=== PATIENT | female | born 1950 | race Caucasian/White ===

== ENCOUNTER 2016-09-12 11:57 | Outpatient (CLI) ==
[2016-09-12 13:28] LABS: BASOPHILS % (AUTO) 0.4 % (0.0-3.0); EOSINOPHILS # (AUTO) 0.1 K/ul (0.0-0.7); EOSINOPHILS % (AUTO) 1.8 % (0.0-7.0); HEMATOCRIT 43.1 % (37.0-47.0); HEMOGLOBIN 13.6 g/dl (12.0-16.0); IMMATURE GRANULOCYTE % (AUTO) 0.3 % (0.0-5.0); LYMPHOCYTES # (AUTO) 2.3 K/uL (0.60-3.4); LYMPHOCYTES % (AUTO) 29.1 (10.0-50.0); MEAN CORPUSCULAR HEMOGLOBIN 29.1 pg (27.0-31.0); MEAN CORPUSCULAR HGB CONC 31.6 (31.8-35.4); MEAN CORPUSCULAR VOLUME 92.1 fl (81.0-99.0); MONOCYTES # (AUTO) 0.5 K/uL (0.4-2.0); MONOCYTES % (AUTO) 5.9 (0-10); NEUTROPHILS % (AUTO) 62.5; PLATELET COUNT 266 10^3/uL (140-440); RED BLOOD COUNT 4.68 10^6/ul (4.20-5.40); WHITE BLOOD COUNT 7.94 K/ul (4.6-10.2)
[2016-09-12 13:37] LABS: ALBUMIN 4.3 g/dL (3.4-5.0); ALBUMIN/GLOBULIN RATIO 1.43; ANION GAP 12.8; BILIRUBIN,TOTAL 0.46 mg/dL (0.00-1.20); CALCIUM 9.6 mg/dL (8.2-10.2); CHOL/HDL RATIO 3.1 (4.5-5.5); CREATININE 0.88 mg/dL (0.60-1.30); POTASSIUM 3.8 mmol/L (3.5-5.10); TOTAL PROTEIN 7.3 g/dL (5.8-8.1)
[2016-09-12 14:01] LABS: BUN/CREATININE RATIO 11.36
== END 2016-09-12 11:58 | disposition home or self-care (01) ==
LOC: LAB 11:57
PROVIDERS: ATTEND Emergency Medicine
DX: J44.9 Chronic obstructive pulmonary disease, unspecified (principal); E78.5 Hyperlipidemia, unspecified
CPT/HCPCS: 36415; 80053; 80061; 85025

== ENCOUNTER 2016-09-22 07:24 | Emergency (ER) | payer OTHER ==
[2016-09-22 07:33] VITALS: BP 113/70; TEMP 99.2; BMI 19.9
[2016-09-22] MEDS ORDERED: DUONEB NEB STA (07:49)
[2016-09-22 08:03] LABS: BASOPHILS % (AUTO) 0.4 % (0.0-3.0); EOSINOPHILS % (AUTO) 0.1 % (0.0-7.0); HEMATOCRIT 42.1 % (37.0-47.0); HEMOGLOBIN 13.4 g/dl (12.0-16.0); IMMATURE GRANULOCYTE % (AUTO) 0.3 % (0.0-5.0); LYMPHOCYTES # (AUTO) 0.7 K/uL (0.60-3.4); LYMPHOCYTES % (AUTO) 10.1 (10.0-50.0); MEAN CORPUSCULAR HEMOGLOBIN 28.5 pg (27.0-31.0); MEAN CORPUSCULAR HGB CONC 31.8 (31.8-35.4); MEAN CORPUSCULAR VOLUME 89.4 fl (81.0-99.0); MONOCYTES # (AUTO) 0.6 K/uL (0.4-2.0); MONOCYTES % (AUTO) 8.3 (0-10); NEUTROPHILS # (AUTO) 5.4 K/ul (2.0-6.9); NEUTROPHILS % (AUTO) 80.8; PLATELET COUNT 177 10^3/uL (140-440); RED BLOOD COUNT 4.71 10^6/ul (4.20-5.40); WHITE BLOOD COUNT 6.72 K/ul (4.6-10.2)
[2016-09-22 08:19] LABS: ABG BASE EXCESS -1 (-2.0-2.0); ABG HCO3 23.7 (22.0-26.0); ABG PCO2 38.5 mmHg (35-45); ABG PH 7.39 (7.35-7.45); ABG TCO2 25 (22.0-28.0)
--- NOTE | 2016-09-22 08:22 | DI ---
EXAM: Chest one view. CLINICAL INDICATION: Cough. COMPARISON: None available. FINDINGS: A single AP radiograph of the thorax is provided. There is no interval change. The lung volumes are hyperinflated and diaphragms flattened suggesting pulmonary emphysema. The remainder of the pulmonary parenchyma is clear and there is no pleural ab normality. The cardiomediastinal silhouette and visualized bony structures are unremarkable. IMPRESSION: 1. No interval change, with no acute pulmonary abnormality. 2. Findings suggest underlying pulmonary emphysema.
[2016-09-22 08:38] LABS: ALBUMIN 3.8 g/dL (3.4-5.0); ALBUMIN/GLOBULIN RATIO 1.41; ANION GAP 15.9; BILIRUBIN,TOTAL 0.94 mg/dL (0.00-1.20); BUN/CREATININE RATIO 19.76; CALCIUM 8.8 mg/dL (8.2-10.2); CREATININE 0.86 mg/dL (0.60-1.30); POTASSIUM 4.9 mmol/L (3.5-5.10); TOTAL PROTEIN 6.5 g/dL (5.8-8.1); TROPONIN I 0.016 ng/ml (0.0000-0.4000)
[2016-09-22 08:44] LABS: CREATINE KINASE MB 3.9 ng/ml (0.0-3.6)
--- NOTE | 2016-09-22 09:03 | ED.PDOC ---
General ED Provider: Dr. MARIAMA RODRIGUEZ Chief Complaint: Shortness of Air Stated Complaint: shortness of breath Time Seen by Physician: 07:24 (nurse present) Mode of Arrival: Wheelchair Information Source: Patient Exam Limitations: No limitations [facility] Nursing and Triage Documentation Reviewed and Agree: Yes Review of Systems - Review Of Systems Constitutional: Reports: No symptoms Eyes: Reports: No symptoms Ears, Nose, Mouth, Throat: Reports: No symptoms Respiratory: Reports: Cough, Short of air Cardiac: Reports: No symptoms GI: Reports: No symptoms : Reports: No symptoms Musculoskeletal: Reports: No symptoms Skin: Reports: No symptoms Neurological: Reports: No symptoms Endocrine: Reports: No symptoms Hematologic/Lymphatic: Reports: No symptoms All Other Systems: Reviewed and Negative Past Medical History - Past Medical History Previously Healthy: No Endocrine: Reports: None Cardiovascular: Reports: None Respiratory: Reports: COPD Hematological: Reports: None Gastrointestinal: Reports: None Genitourinary: Reports: None Neuro/Psych: Reports: None Musculoskeletal: Reports: None Cancer: Reports: None Last Menstrual Period: hysterectomy - Surgical History General Surgical History: Reports: None - Family History Family History: Reports: None - Social History Smoking Status: Former smoker Hx Substance Use: No Alcohol Screening: None Physical Exam - Physical Exam Appearance: Well-appearing, No pain distress, Well-nourished Eyes: JANETTE, EOMI, Conjunctiva clear ENT: Ears normal, Nose normal, Oropharynx normal Respiratory: Rhonchi, Wheezes Cardiovascular: RRR, Pulses normal, No rub, No murmur GI/: Soft, Nontender, No masses, Bowel sounds normal, No Organomegaly Musculoskeletal: Normal strength, ROM intact, No edema, No calf tenderness Skin: Warm, Dry, Normal color Neurological: Sensation intact, Motor intact, Reflexes intact, Cranial nerves intact, Alert, Oriented Psychiatric: Affect appropriate, Mood appropriate Interpretation - Radiology Interpretation Radiology Interpretation By: Radiologist Radiology Results: No acute changes Critical Care Note - Critical Care Note Total Time (mins): 0 Course - Course Hematology/Chemistry: 09/22/16 07:55 09/22/16 07:55 Orders, Labs, Meds: Lab Review 09/22/16 09/22/16 07:50 07:55 WBC 6.72 RBC 4.71 Hgb 13.4 Hct 42.1 MCV 89.4 MCH 28.5 MCHC 31.8 RDW Coeff of Mercedes 14.0 Plt Count 177 Immature Gran % (Auto) 0.3 Neut % (Auto) 80.8 Lymph % (Auto) 10.1 [place] % (Auto) 8.3 Eos % (Auto) 0.1 Baso % (Auto) 0.4 Immature Gran # (Auto) 0.0 Neut # 5.4 Lymph # 0.7 [place] # 0.6 Eos # 0.0 Baso # 0.0 D-Dimer 0.20 Puncture Site Rb O2 Saturation 97.0 ABG pH 7.39 ABG pCO2 38.5 ABG pO2 87.0 ABG HCO3 23.7 ABG Total CO2 25 ABG Base Excess -1 O2 Delivery Device Nc Oxygen Liter Flow 2.00 FiO2 % 28.0 Sodium 135 L Potassium 4.9 Chloride 98 Carbon Dioxide 26 Anion Gap 15.9 BUN 17 Creatinine 0.86 Estimated GFR (MDRD) 66.00 BUN/Creatinine Ratio 19.76 Glucose 108 Calcium 8.8 Total Bilirubin 0.94 AST 27 ALT 21 Alkaline Phosphatase 54 Total Creatine Kinase 339 CK-MB (CK-2) 3.9 H CK-MB (CK-2) % 1.53455 Troponin I 0.0160 B-Natriuretic Peptide 21 Total Protein 6.5 Albumin 3.8 Globulin 2.7 Albumin/Globulin Ratio 1.41 Orders Category Date Time Status ABG DRAW REQUEST Stat CARDIO 09/22/16 07:50 Completed EKG-(ED ONLY) Stat CARDIO 09/22/16 07:48 Completed NEBULIZER TREATMENT Stat CARDIO 09/22/16 07:50 Completed ED IV/MEDIPORT/POWERPORT .ONCE EMERGENCY 09/22/16 07:49 Active ABG Stat LAB 09/22/16 07:50 Completed B-TYPE NATRIURETIC PEPTIDE Stat LAB 09/22/16 07:55 Completed CBC W/ AUTO DIFF Stat LAB 09/22/16 07:55 Completed COMPREHENSIVE METABOLIC PANEL Stat LAB 09/22/16 07:55 Completed CREATINE KINASE Stat LAB 09/22/16 07:55 Completed D-DIMER Stat LAB 09/22/16 07:55 Completed MOLECULAR GROUP A STREP Stat LAB 09/22/16 07:55 Results STREP SCREEN Stat LAB 09/22/16 07:55 Results TROPONIN I Stat LAB 09/22/16 07:55 Completed 0.9 % Sodium Chloride [Saline Flush] MEDS 09/22/16 07:49 Active 1 syr IVF PRN PRN Ipratropium/Albuterol Neb [Duoneb] MEDS 09/22/16 07:49 Discontinued 1 vial NEB ONCE STA CHEST, 1V AP ONLY Stat RADS 09/22/16 07:48 Completed Medications Generic Name Dose Route Start Last Admin Trade Name Freq PRN Reason Stop Dose Admin Sodium Chloride 1 syr 09/22/16 07:49 Saline Flush IVF PRN PRN To flush IV Discontinued Medications Generic Name Dose Route Start Last Admin Trade Name Freq PRN Reason Stop Dose Admin Albuterol/Ipratropium 1 vial 09/22/16 07:49 09/22/16 08:26 Duoneb NEB 09/22/16 07:50 1 vial ONCE STA Administration Vital Signs: Temp Pulse Resp BP Pulse Ox 09/22/16 07:24 99.2 F 127 H 24 113/70 94 L Departure - Departure Time of Disposition: 09:06 Disposition: HOME SELF-CARE Discharge Problem: COPD (chronic obstructive pulmonary disease) Qualifiers: Chronic bronchitis type: unspecified Instructions: COPD (Chronic Obstructive Pulmonary Disease) (ED) Condition: Good Pt referred to PMD for follow-up: No Additional Instructions: Please call your Family Physician as soon as possible to schedule a follow-up appointment. Allergies/Adverse Reactions: Allergies No Known Allergies Allergy (Unverified 09/22/16 07:33) Home Medications: Ambulatory Orders Tiotropium [place] [Spiriva] 18 mcg IH d 11/14/15 Albuterol Sulfate 2.5 mg IH 3-4XD PRN 03/06/16 Albuterol Sulfate [Ventolin Hfa] 8 gm IH 3-4XD PRN 03/20/16 Budesonide/Formoterol Fumarate [Symbicort 160-4.5 Mcg Inhaler] 10.2 gm IH DAILY 09/19/16
== END 2016-09-22 09:32 | disposition home or self-care (01) ==
LOC: ED 07:24
DX: J42 Unspecified chronic bronchitis (principal); Z79.899 Other long term (current) drug therapy
CPT/HCPCS: 36415; 80053; 82550; 82553; 82803; 83880; 84484; 85025; 85379; 87651; 87880; 93005; 93010; 94640; 99283

== ENCOUNTER 2016-09-24 15:42 | Emergency (ER) | payer OTHER ==
[2016-09-24 15:42] VITALS: BMI 19.9
[2016-09-24] MEDS ORDERED: DUONEB NEB ONE (15:45)
[2016-09-24 15:46] VITALS: BP 145/93; TEMP 98.3
[2016-09-24] MEDS ORDERED: DUONEB NEB STA (15:57)
--- NOTE | 2016-09-24 15:59 | ED.PDOC ---
General ED Provider: Dr. GEORGI ELIZABETH JR Chief Complaint: Shortness of Air Stated Complaint: pt came in short of breath on thursday 09/21, went home on steroids. today started having increase in shortness of air[End]98.3 105 24 88 145/93 moderate productive cough Time Seen by Physician: 15:57 Mode of Arrival: Wheelchair Information Source: Patient Exam Limitations: No limitations Nursing and Triage Documentation Reviewed and Agree: No Review of Systems - Review Of Systems Constitutional: Reports: Malaise, Weakness Eyes: Reports: No symptoms Ears, Nose, Mouth, Throat: Reports: No symptoms Respiratory: Reports: Short of air (sudden this afternoon) Cardiac: Reports: No symptoms GI: Reports: No symptoms : Reports: No symptoms Musculoskeletal: Reports: No symptoms Skin: Reports: No symptoms Neurological: Reports: No symptoms Endocrine: Reports: No symptoms Hematologic/Lymphatic: Reports: No symptoms All Other Systems: Other Past Medical History - Past Medical History Previously Healthy: No Endocrine: Reports: None Cardiovascular: Reports: None Respiratory: Reports: COPD Hematological: Reports: None Gastrointestinal: Reports: None Genitourinary: Reports: None Neuro/Psych: Reports: None Musculoskeletal: Reports: None Cancer: Reports: None Last Menstrual Period: none - Surgical History General Surgical History: Reports: None - Family History Family History: Reports: None - Social History Smoking Status: Former smoker Hx Substance Use: No Alcohol Screening: None Physical Exam - Physical Exam Appearance: Ill-appearing, Thin Ill-appearing: Moderate Eyes: JANETTE, EOMI, Conjunctiva clear ENT: Ears normal, Nose normal, Oropharynx normal Neck: Supple Respiratory: Airway patent, Breath sounds diminished, Rhonchi, Wheezes Cardiovascular: RRR, Pulses normal, No rub, No murmur GI/: Soft, Nontender, No masses, Bowel sounds normal, No Organomegaly Musculoskeletal: Normal strength, ROM intact, No edema, No calf tenderness Skin: Warm, Dry, Normal color Neurological: Sensation intact, Motor intact, Reflexes intact, Cranial nerves intact, Alert, Oriented Psychiatric: Affect appropriate, Mood appropriate Interpretation - Radiology Interpretation Radiology Interpretation By: Radiologist Radiology Results: No acute changes (chf no definite pneumonia- scarring present ) Exam Interpreted: CXR - EKG Interpretation Time of EKG #1: 16:20 Rate: Normal Rhythm: Sinus ST Segment: Other (no sig change 09/22/16) Critical Care Note - Critical Care Note Total Time (mins): 5 Course - Course Hematology/Chemistry: 09/24/16 16:10 09/24/16 16:10 Orders, Labs, Meds: Lab Review 09/24/16 09/24/16 15:58 16:10 WBC 7.04 RBC 4.61 Hgb 13.4 Hct 38.8 MCV 84.2 D MCH 29.1 MCHC 34.5 RDW Coeff of [place] 13.3 Plt Count 185 Immature Gran % (Auto) 0.3 Neut % (Auto) 79.1 Lymph % (Auto) 14.1 [place] % (Auto) 6.4 Eos % (Auto) 0.0 Baso % (Auto) 0.1 Immature Gran # (Auto) 0.0 Neut # 5.6 Lymph # 1.0 [place] # 0.5 Eos # 0.0 Baso # 0.0 D-Dimer 0.22 Puncture Site Rrad O2 Saturation 92.0 L ABG pH 7.435 ABG pCO2 41.3 ABG pO2 63.0 L ABG HCO3 27.7 H ABG Total CO2 29 H ABG Base Excess 3 H Attila Test + FiO2 % 21.0 Sodium 123 L Potassium 4.3 Chloride 85 L Carbon Dioxide 27 Anion Gap 15.3 BUN 20 H Creatinine 0.73 Estimated GFR (MDRD) 79.00 BUN/Creatinine Ratio 27.39 Glucose 111 Calcium 8.8 Total Bilirubin 1.06 AST 47 H ALT 37 Alkaline Phosphatase 52 L Troponin I 0.0100 B-Natriuretic Peptide 27 Total Protein 7.2 Albumin 4.2 Globulin 3.0 Albumin/Globulin Ratio 1.40 Orders Category Date Time Status ABG DRAW REQUEST Stat CARDIO 09/24/16 15:58 Completed EKG-(ED ONLY) Stat CARDIO 09/24/16 15:57 Completed NEBULIZER TREATMENT Stat CARDIO 09/24/16 15:58 Completed ABG Stat LAB 09/24/16 15:58 Completed B-TYPE NATRIURETIC PEPTIDE Stat LAB 09/24/16 16:10 Completed BLOOD CULTURE Stat LAB 09/24/16 16:10 Received CBC W/ AUTO DIFF Stat LAB 09/24/16 16:10 Completed COMPREHENSIVE METABOLIC PANEL Stat LAB 09/24/16 16:10 Completed D-DIMER Stat LAB 09/24/16 16:10 Completed TROPONIN I Stat LAB 09/24/16 16:10 Completed Guaifenesin/Codeine Phosphate [Robitussin AC Syrup] MEDS 09/24/16 17:44 Discontinued 10 ml PO ONCE STA Ipratropium/Albuterol Neb [Duoneb] MEDS 09/24/16 15:45 Discontinued 1 vial NEB .STK-MED ONE Ipratropium/Albuterol Neb [Duoneb] MEDS 09/24/16 15:57 Discontinued 1 vial NEB ONCE STA CHEST, 1V AP ONLY Stat RADS 09/24/16 15:57 Completed Medications Discontinued Medications Generic Name Dose Route Start Last Admin Trade Name Freq PRN Reason Stop Dose Admin Albuterol/Ipratropium 1 vial 09/24/16 15:57 09/24/16 16:02 Duoneb NEB 09/24/16 15:58 Not Given ONCE STA Guaifenesin/Codeine Phosphate 10 ml 09/24/16 17:44 09/24/16 17:54 Robitussin Ac Syrup PO 09/24/16 17:45 10 ml ONCE STA Administration Vital Signs: Temp Pulse Resp BP Pulse Ox 09/24/16 15:42 98.3 F 105 H 24 145/93 H 88 L Departure - Departure Time of Disposition: 18:13 Disposition: HOME SELF-CARE Discharge Problem: COPD (chronic obstructive pulmonary disease) Qualifiers: COPD type: COPD with acute exacerbation Qualifier Code: (J44.1) Chronic obstructive pulmonary disease with (acute) exacerbation Instructions: Emphysema (ED), COPD (Chronic Obstructive Pulmonary Disease) (ED) Condition: Fair Pt referred to PMD for follow-up: Yes Additional Instructions: oxygen 2 liters continuous 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 follow up [place] DAY for cough return if fever over 101.0, if breathing worse Prescriptions: Guaifenesin/Codeine Phosphate [Robitussin AC Syrup] 10 ml PO Q6H PRN #240 ml PRN Reason: Cough Allergies/Adverse Reactions: Allergies No Known Allergies Allergy (Verified 09/24/16 15:48) Home Medications: Ambulatory Orders Tiotropium [place] [Spiriva] 18 mcg IH d 11/14/15 Albuterol Sulfate 2.5 mg IH 3-4XD PRN 03/06/16 Albuterol Sulfate [Ventolin Hfa] 8 gm IH 3-4XD PRN 03/20/16 Budesonide/Formoterol Fumarate [Symbicort 160-4.5 Mcg Inhaler] 10.2 gm IH DAILY 09/19/16 Guaifenesin/Codeine Phosphate [Robitussin AC Syrup] 10 ml PO Q6H PRN #240 ml
[2016-09-24 16:14] LABS: BASOPHILS % (AUTO) 0.1 % (0.0-3.0); HEMATOCRIT 38.8 % (37.0-47.0); HEMOGLOBIN 13.4 g/dl (12.0-16.0); IMMATURE GRANULOCYTE % (AUTO) 0.3 % (0.0-5.0); LYMPHOCYTES % (AUTO) 14.1 (10.0-50.0); MEAN CORPUSCULAR HEMOGLOBIN 29.1 pg (27.0-31.0); MEAN CORPUSCULAR HGB CONC 34.5 (31.8-35.4); MEAN CORPUSCULAR VOLUME 84.2 fl (81.0-99.0); MONOCYTES # (AUTO) 0.5 K/uL (0.4-2.0); MONOCYTES % (AUTO) 6.4 (0-10); NEUTROPHILS # (AUTO) 5.6 K/ul (2.0-6.9); NEUTROPHILS % (AUTO) 79.1; PLATELET COUNT 185 10^3/uL (140-440); RED BLOOD COUNT 4.61 10^6/ul (4.20-5.40); WHITE BLOOD COUNT 7.04 K/ul (4.6-10.2)
[2016-09-24 16:36] LABS: ABG BASE EXCESS 3 (-2.0-2.0); ABG HCO3 27.7 (22.0-26.0); ABG PCO2 41.3 mmHg (35-45); ABG PH 7.435 (7.35-7.45); ABG TCO2 29 (22.0-28.0)
[2016-09-24 16:38] LABS: ALBUMIN 4.2 g/dL (3.4-5.0); ALBUMIN/GLOBULIN RATIO 1.4; ANION GAP 15.3; BILIRUBIN,TOTAL 1.06 mg/dL (0.00-1.20); BUN/CREATININE RATIO 27.39; CALCIUM 8.8 mg/dL (8.2-10.2); CREATININE 0.73 mg/dL (0.60-1.30); POTASSIUM 4.3 mmol/L (3.5-5.10); TOTAL PROTEIN 7.2 g/dL (5.8-8.1); TROPONIN I 0.01 ng/ml (0.0000-0.4000)
--- NOTE | 2016-09-24 17:01 | DI ---
EXAM: CHEST FRONTAL VIEW HISTORY: Chest pain. COMPARISON: 09/22/2016 FINDINGS: Heart size within normal limits. Lungs are hyperinflated. Diffuse lucency lung zones hwang ggesting pulmonary emphysema. Bronchovascular thickening in the bases likely fibrotic. No pleural fluid or vascular congestion. IMPRESSION: Significant chronic obstructive pulmonary disease is suggested, correlate clinically. N o definite consolidated pneumonia although managing the patient on a clinical basis is recommended.
[2016-09-24] MEDS ORDERED: ROBITUSSIN AC SYRUP PO STA (17:44)
[2016-09-26] MEDS ORDERED: PHENYLEPHRINE ONE ×2 (01:14→01:15)
== END 2016-09-24 18:28 | disposition home or self-care (01) ==
LOC: ED 15:42
DX: J44.1 Chronic obstructive pulmonary disease with (acute) exacerbation (principal); Z79.899 Other long term (current) drug therapy
CPT/HCPCS: 36415; 80053; 82803; 83880; 84484; 85025; 85379; 87040; 93005; 93010; 94640; 99283

== ENCOUNTER 2016-09-25 21:50 | Emergency (ER) ==
[2016-09-25] MEDS ORDERED: DUONEB NEB ONE (22:20)
[2016-09-25] MEDS ORDERED: XOPENEX 1.25 MG NEB ONE (22:35)
[2016-09-26 00:42] VITALS: BMI 19.9
[2016-09-26] MEDS ORDERED: VERSED ONE ×2 (00:54→01:01)
[2016-09-26] MEDS ORDERED: NORCURON ONE (00:54)
[2016-09-26] MEDS ORDERED: ANECTINE ONE (00:54)
[2016-09-26] MEDS ORDERED: SUBLIMAZE ONE (00:54)
[2016-09-26] MEDS ORDERED: SOLU-MEDROL 125 MG IVP STA (00:58)
[2016-09-26 01:00] VITALS: TEMP 98.4
[2016-09-26] MEDS ORDERED: ROCEPHIN 1 GM in SODIUM CHLORIDE 50 ML IV STA (01:02)
[2016-09-26] MEDS ORDERED: ANECTINE IVP STA (01:09)
[2016-09-26] MEDS ORDERED: DIPRIVAN 20 ML VIAL IVP STA (01:10)
[2016-09-26] MEDS ORDERED: VERSED IVP STA (01:10)
[2016-09-26] MEDS ORDERED: EPHEDRINE SULFATE IVP STA ×2 (01:10→01:24)
[2016-09-26] MEDS ORDERED: PHENYLEPHRINE IVP STA (01:27)
[2016-09-26] MEDS ORDERED: NORCURON IVP STA (01:40)
[2016-09-26] MEDS ORDERED: XOPENEX 1.25 MG NEB STA (01:52)
[2016-09-26] MEDS ORDERED: DUONEB NEB STA (01:52)
[2016-09-26] MEDS ORDERED: DOPAMINE 400 MG in PREMIX 250 ML D5W 1 BAG IV SCH (02:00)
--- NOTE | 2016-09-26 02:01 | ED.PDOC ---
Procedures - Intubation Time of Intubation: 01:04 Medications: Yes: Norcuron, Succinylcholine, Versed, Propofol (Versed 2.5mg ( wasted 2.5mg) Anectine 80mg (W-120mg) Norcuron 4mg(W-6mg) prop 20mg(Waste-180mg) ) Type of Tube Used: Endotracheal Tube Size: 7.5 Cricoid Pressure Used: No Tube Bernal Used: Yes Position of Tube at Lip: 22cm Suction Used: No Glidescope Used: No CO2 Detector Used: Yes Lung Sounds Equal Bilaterally: Yes Intubation Complications: Present: No complications Tube Inserted By: Kit Alfonso CRNA Tube Placement Verified by X-ray: Yes - IV/Art Line Insertion Location: ACR Type of Line: Arterial Line (Arterial stick left radial artery for ABGs) Invasive Line/IV Catheter Gauge: 18 Number of Attempts: 1 Blood Return Positive: Yes Invasive Line/IV Flushes Without Difficulty: Yes Conscious Sedation - Pre-op Assessment Weight: 109 lb Surgical History: hysterectomy - Medical History Past Medical History: COPD - Physical Exam Heart Rate/Rhythm: Regular Rhythm
[2016-09-26 02:06] LABS: HEMATOCRIT 37.6 % (37.0-47.0); LYMPHOCYTES % (AUTO) 7.7 (10.0-50.0); MEAN CORPUSCULAR HGB CONC 34.6 (31.8-35.4); MEAN CORPUSCULAR VOLUME 83.7 fl (81.0-99.0); PLATELET COUNT 239 10^3/uL (140-440); RED BLOOD COUNT 4.49 10^6/ul (4.20-5.40); WHITE BLOOD COUNT 22.02 K/ul (4.6-10.2)
[2016-09-26 02:07] LABS: BASOPHILS % (AUTO) 0.5 % (0.0-3.0); EOSINOPHILS % (AUTO) 0.1 % (0.0-7.0); IMMATURE GRANULOCYTE % (AUTO) 0.5 % (0.0-5.0); LYMPHOCYTES # (AUTO) 1.7 K/uL (0.60-3.4); MONOCYTES # (AUTO) 1.7 K/uL (0.4-2.0); MONOCYTES % (AUTO) 7.7 (0-10); NEUTROPHILS # (AUTO) 18.5 K/ul (2.0-6.9)
[2016-09-26 02:10] LABS: ANION GAP 14.1; POTASSIUM 4.1 mmol/L (3.5-5.10)
[2016-09-26 02:11] LABS: ALBUMIN 3.9 g/dL (3.4-5.0); ALBUMIN/GLOBULIN RATIO 1.39; BUN/CREATININE RATIO 31.14; CALCIUM 8.6 mg/dL (8.2-10.2); CREATININE 0.61 mg/dL (0.60-1.30); TOTAL PROTEIN 6.7 g/dL (5.8-8.1); TROPONIN I 0.019 ng/ml (0.0000-0.4000)
[2016-09-26 02:15] LABS: CREATINE KINASE MB 13.5 ng/ml (0.0-3.6)
[2016-09-26] MEDS ORDERED: URO-JET MUCOUSMEMB STA (02:16)
[2016-09-26 02:24] LABS: BILIRUBIN,TOTAL 1.11 mg/dL (0.00-1.20)
[2016-09-26 02:28] LABS: BILIRUBIN,URINE Negative (NEGATIVE); KETONES,URINE 1+ (NEGATIVE); LEUKOCYTE ESTERASE ,URINE Negative (NEGATIVE); NITRITE,URINE Negative (NEGATIVE); PH,URINE 5.5 (5-9); PROTEIN,URINE 1+ (NEGATIVE); URINE, BLOOD 1+ (NEGATIVE)
[2016-09-26 02:30] LABS: ADD URINE MICROSCOPIC YES
[2016-09-26 02:45] VITALS: BP 82/67
[2016-09-26 04:53] LABS: ABG BASE EXCESS 4 (-2.0-2.0); ABG HCO3 30.3 (22.0-26.0); ABG PCO2 62.2 mmHg (35-45); ABG PH 7.296 (7.35-7.45); ABG TCO2 32 (22.0-28.0)
[2016-09-26 04:56] LABS: ABG BASE EXCESS 1 (-2.0-2.0); ABG HCO3 29.4 (22.0-26.0); ABG PH 7.201 (7.35-7.45); ABG TCO2 32 (22.0-28.0)
[2016-09-26] MEDS ORDERED: SOLU-MEDROL 125 MG ONE (06:23)
[2016-09-26] MEDS ORDERED: XOPENEX 1.25 MG NEB ONE (06:24)
[2016-09-26] MEDS ORDERED: DUONEB NEB ONE (06:24)
[2016-09-26] MEDS ORDERED: ROCEPHIN ONE (06:24)
--- NOTE | 2016-09-26 08:17 | DI ---
EXAM: Single view of the chest. History: Short of breath Comparison: Chest radiograph 09/24/2016 Findings: Heart size is normal. Interval development of right lower lobe consolidation. Emphysema . Atherosclerotic vascular calcifications. No visible pneumothorax. The visualized osseous struct ures unchanged. Impression: Interval development of right lower lobe pneumonia. Emphysema.
--- NOTE | 2016-09-26 08:17 | DI ---
EXAM: Single view of the chest. History: Tube placement. Comparison: Chest radiograph 09/25/2016 Findings: / impression Endotracheal tube tip is just below the level of the clavicles. Atheroscler otic vascular calcifications. Emphysema. Heart size is stable.
--- NOTE | 2016-10-23 11:05 | ED.PDOC ---
[id number]: "I can't breathe" Time Seen by Physician: 22:00 Mode of Arrival: Wheelchair Information Source: Patient, Family Exam Limitations: No limitations Primary Care Provider: DAMON GONGORA Nursing and Triage Documentation Reviewed and Agree: Yes Respiratory Complaint Exam - Shortness of Air Complaint/Exam Onset/Duration: several days Symptoms Are: Still present Timing: Constant Initial Severity: Severe Current Severity: Severe Character: Reports: Dyspnea at rest, Dyspnea on exertion Aggravating: Reports: None Alleviating: Reports: Bronchodilators, Oxygen Associated Signs and Symptoms: Reports: Cough, Wheezing, Chest pain with cough, Fever Related History: Reports: Similar episode History of Healthcare-Acquired Pneumonia: No Pulmonary Embolism Risk Factors: Reports: Smoking Cardiac Risk Factors: Reports: Smoking Pseudomonas Risk Factors: Reports: Chronic Lung Disease Tuberculosis Risk Factors: Reports: Chronic Resp. Faliure Home Oxygen Use: Yes Recent Stress Test: No Recent Echo/LV Function: No Respiratory Distress: Severe Stridor Present: No Tracheal Deviation: No Subcutaneous Emphysema: No Accessory Muscle Use: Yes Diminished Breath Sounds: Yes Unable to Speak Full Sentences: Yes Fatigue: Yes Leg Swelling: No Differential Diagnoses: COPD Exacerbation, Pneumonia Quality Indicator For Non-Traumatic Chest Pain/Syncope: EKG Performed Review of Systems - Review Of Systems Constitutional: Reports: Fever Eyes: Reports: No symptoms Ears, Nose, Mouth, Throat: Reports: No symptoms Respiratory: Reports: Cough, Short of air Cardiac: Reports: No symptoms GI: Reports: No symptoms : Reports: No symptoms Musculoskeletal: Reports: No symptoms Skin: Reports: No symptoms Neurological: Reports: No symptoms Endocrine: Reports: No symptoms Hematologic/Lymphatic: Reports: No symptoms All Other Systems: Reviewed and Negative Past Medical History - Past Medical History Previously Healthy: No Endocrine: Reports: None Cardiovascular: Reports: None Respiratory: Reports: COPD Hematological: Reports: None Gastrointestinal: Reports: None Genitourinary: Reports: None Neuro/Psych: Reports: None Musculoskeletal: Reports: None Cancer: Reports: None Last Menstrual Period: n/a - Surgical History General Surgical History: Reports: Hysterectomy - Family History Family History: Reports: None - Social History Smoking Status: Former smoker Hx Substance Use: No Alcohol Screening: None Lives: With family - Immunizations Tetanus Shot up to Date: Yes Physical Exam - Physical Exam Appearance: Ill-appearing, Thin Ill-appearing: Moderate Eyes: JANETTE, EOMI, Conjunctiva clear ENT: Ears normal, Nose normal, Oropharynx normal Neck: Supple Respiratory: Airway patent, Breath sounds diminished Cardiovascular: Tachycardia GI/: Soft, Nontender, No masses, Bowel sounds normal, No Organomegaly Musculoskeletal: Normal strength, ROM intact, No edema, No calf tenderness Skin: Warm Neurological: Sensation intact, Motor intact, Reflexes intact, Cranial nerves intact, Alert, Oriented Psychiatric: Affect appropriate, Mood appropriate Interpretation - Radiology Interpretation Radiology Interpretation By: Radiologist Radiology Results: Positive (RLL pneumonia, copd) Exam Interpreted: Portable CXR Radiology Interpretation By: Radiologist Exam Interpreted: Portable CXR (ET tube placement) - EKG Interpretation Time of EKG #1: 22:23 Rate: Normal Rhythm: Sinus Procedures - Intubation Indication: Present: Respiratory Insufficiency Type of Tube Used: Endotracheal Tube Size: 7 Cricoid Pressure Used: Yes Tube Bernal Used: Yes Number of Attempts: 1 Suction Used: No Glidescope Used: Yes CO2 Detector Used: Yes Lung Sounds Equal Bilaterally: Yes Intubation Complications: Present: No complications Tube Inserted By: flako hassan Tube Placement Verified by X-ray: Yes Critical Care Note - Critical Care Note Total Time (mins): 30 Course - Course Hematology/Chemistry: 09/26/16 02:00 09/26/16 01:49 Orders, Labs, Meds: Lab Review 09/26/16 09/26/16 09/26/16 01:49 01:53 01:54 WBC RBC Hgb Hct MCV MCH MCHC RDW Coeff of Mercedes Plt Count Immature Gran % (Auto) Neut % (Auto) Lymph % (Auto) [place] % (Auto) Eos % (Auto) Baso % (Auto) Immature Gran # (Auto) Neut # Lymph # [place] # Eos # Baso # D-Dimer Puncture Site rb Rr O2 Saturation 87.0 L 93.0 L ABG pH 7.296 L* 7.201 L* ABG pCO2 62.2 H 75.0 H ABG pO2 61.0 L 85.0 ABG HCO3 30.3 H 29.4 H ABG Total CO2 32 H 32 H ABG Base Excess 4 H 1 Attila Test + + O2 Delivery Device bnc Bipap Oxygen Liter Flow 2.00 FiO2 % 28.0 40.0 Sodium 122 L Potassium 4.1 Chloride 85 L Carbon Dioxide 27 Anion Gap 14.1 BUN 19 H Creatinine 0.61 Estimated GFR (MDRD) 98.00 BUN/Creatinine Ratio 31.14 Glucose 131 H Calcium 8.6 Total Bilirubin 1.11 AST 40 H ALT 36 Alkaline Phosphatase 50 L Total Creatine Kinase 320 CK-MB (CK-2) 13.5 H* CK-MB (CK-2) % 4.87896 Troponin I 0.0190 B-Natriuretic Peptide Total Protein 6.7 Albumin 3.9 Globulin 2.8 Albumin/Globulin Ratio 1.39 Urine Color Urine Clarity Urine pH Ur Specific [place] Urine Protein Urine Glucose (UA) Urine Ketones Urine Blood Urine Nitrite Urine Bilirubin Urine Urobilinogen Ur Leukocyte Esterase Urine Microscopic RBC Ur Squamous Epith Cells Hyaline Casts Urine Mucus 09/26/16 09/26/16 02:00 02:20 WBC 22.02 H D RBC 4.49 Hgb 13.0 Hct 37.6 MCV 83.7 MCH 29.0 MCHC 34.6 RDW Coeff of Mercedes 39.9 H Plt Count 239 Immature Gran % (Auto) 0.5 Neut % (Auto) 84.0 Lymph % (Auto) 7.7 L [place] % (Auto) 7.7 Eos % (Auto) 0.1 Baso % (Auto) 0.5 Immature Gran # (Auto) 0.1 Neut # 18.5 H Lymph # 1.7 [place] # 1.7 Eos # 0.0 Baso # 0.0 D-Dimer 0.24 Puncture Site O2 Saturation ABG pH ABG pCO2 ABG pO2 ABG HCO3 ABG Total CO2 ABG Base Excess Attila Test O2 Delivery Device Oxygen Liter Flow FiO2 % Sodium Potassium Chloride Carbon Dioxide Anion Gap BUN Creatinine Estimated GFR (MDRD) BUN/Creatinine Ratio Glucose Calcium Total Bilirubin AST ALT Alkaline Phosphatase Total Creatine Kinase CK-MB (CK-2) CK-MB (CK-2) % Troponin I B-Natriuretic Peptide 23 Total Protein Albumin Globulin Albumin/Globulin Ratio Urine Color Yellow Urine Clarity Slightly Urine pH 5.5 Ur Specific [place] >=1.030 Urine Protein 1+ Urine Glucose (UA) Negative Urine Ketones 1+ Urine Blood 1+ Urine Nitrite Negative Urine Bilirubin Negative Urine Urobilinogen 0.2 Ur Leukocyte Esterase Negative Urine Microscopic RBC 0-2 Ur Squamous Epith Cells Not present Hyaline Casts 0-2 Urine Mucus 3+ Orders Category Date Time Status ABG DRAW REQUEST Stat CARDIO 09/26/16 01:54 Completed ABG DRAW REQUEST Stat CARDIO 09/26/16 01:54 Completed EKG-(ED ONLY) Stat CARDIO 09/26/16 01:49 Completed NEBULIZER TREATMENT Stat CARDIO 09/26/16 01:53 Completed ED CATHETER INSERTION AND CARE .ONCE EMERGENCY 09/26/16 02:16 Active IV [ED IV/MEDIPORT/POWERPORT] .ONCE EMERGENCY 09/26/16 01:43 Active ABG Stat LAB 09/26/16 01:53 Completed ABG Stat LAB 09/26/16 01:54 Completed B-TYPE NATRIURETIC PEPTIDE Stat LAB 09/26/16 02:00 Completed CBC W/ AUTO DIFF Stat LAB 09/26/16 02:00 Completed COMPREHENSIVE METABOLIC PANEL Stat LAB 09/26/16 01:49 Completed CREATINE KINASE Stat LAB 09/26/16 01:49 Completed D-DIMER Stat LAB 09/26/16 02:00 Completed TROPONIN I Stat LAB 09/26/16 01:49 Completed UA [URINALYSIS C & S IF INDICATED] Stat LAB 09/26/16 02:20 Completed 0.9 % Sodium Chloride [Saline Flush] MEDS 09/26/16 01:43 Discontinued 1 syr IVF PRN PRN Ceftriaxone Sodium [Rocephin] MEDS 09/26/16 06:24 Discontinued 1 gm .ROUTE .STK-MED ONE Ceftriaxone Sodium [Rocephin] 1 gm MEDS 09/26/16 01:02 Discontinued 0.9 % Sodium Chloride [Sodium Chloride] 50 ml IV ONCE Ephedrine Sulfate Inj [Ephedrine Sulfate] MEDS 09/26/16 01:24 Discontinued 10 mg IVP ONCE STA Ephedrine Sulfate Inj [Ephedrine Sulfate] MEDS 09/26/16 01:10 Discontinued 5 mg IVP ONCE STA Fentanyl Amp [Sublimaze] MEDS 09/26/16 00:54 Discontinued 100 mcg .ROUTE .STK-MED ONE Ipratropium/Albuterol Neb [Duoneb] MEDS 09/25/16 22:20 Discontinued 1 vial NEB .STK-MED ONE Ipratropium/Albuterol Neb [Duoneb] MEDS 09/26/16 06:24 Discontinued 1 vial NEB .STK-MED ONE Ipratropium/Albuterol Neb [Duoneb] MEDS 09/26/16 01:52 Discontinued 1 vial NEB ONCE STA Levalbuterol HCl [Xopenex 1.25 mg] MEDS 09/25/16 22:35 Discontinued 1 vial NEB .STK-MED ONE Levalbuterol HCl [Xopenex 1.25 mg] MEDS 09/26/16 06:24 Discontinued 1 vial NEB .STK-MED ONE Levalbuterol HCl [Xopenex 1.25 mg] MEDS 09/26/16 01:52 Discontinued 1 vial NEB ONCE STA Lidocaine HCl [Uro-Jet] MEDS 09/26/16 02:16 Discontinued 10 ml [id number] ONCE STA Methylprednisolone Sod Succ/Pf [Solu-Medrol 125 mg] MEDS 09/26/16 06:23 Discontinued 125 mg .ROUTE .STK-MED ONE Methylprednisolone Sod Succ/Pf [Solu-Medrol 125 mg] MEDS 09/26/16 00:58 Discontinued 125 mg IVP ONCE STA Midazolam HCl Inj [Versed] MEDS 09/26/16 01:10 Discontinued 2.5 mg IVP ONCE STA Midazolam HCl Inj [Versed] MEDS 09/26/16 00:54 Discontinued 5 mg .ROUTE .STK-MED ONE Midazolam HCl Inj [Versed] MEDS 09/26/16 01:01 Discontinued 5 mg .ROUTE .STK-MED ONE Phenylephrine Inj [Phenylephrine] MEDS 09/26/16 01:27 Discontinued 0.1 mg IVP ONCE STA Premix 250 ml D5w 1 bag MEDS 09/26/16 02:00 Discontinued Dopamine HCl/D5w [Dopamine] 400 mg IV 5 mcg/kg/min Propofol Inj [Diprivan 20 ml Vial] MEDS 09/26/16 01:10 Discontinued 20 mg IVP ONCE STA Succinylcholine Chloride [Anectine] MEDS 09/26/16 00:54 Discontinued 20 mg .ROUTE .STK-MED ONE Succinylcholine Chloride [Anectine] MEDS 09/26/16 01:09 Discontinued 80 mg IVP ONCE STA Vecuronium Jackson [Norcuron] MEDS 09/26/16 00:54 Discontinued 10 mg .ROUTE .STK-MED ONE Vecuronium Jackson [Norcuron] MEDS 09/26/16 01:40 Discontinued 4 mg IVP ONCE STA CHEST, 1V AP ONLY Stat RADS 09/26/16 00:00 Completed CXR [CHEST, 1V AP ONLY] Stat RADS 09/26/16 01:49 Completed Medications Discontinued Medications Generic Name Dose Route Start Last Admin Trade Name Freq PRN Reason Stop Dose Admin Albuterol/Ipratropium 1 vial 09/26/16 01:52 09/25/16 22:20 Duoneb NEB 09/26/16 01:53 1 vial ONCE STA Administration Ephedrine Sulfate 5 mg 09/26/16 01:10 09/26/16 01:07 Ephedrine Sulfate IVP 09/26/16 01:11 5 mg ONCE STA Administration Ephedrine Sulfate 10 mg 09/26/16 01:24 09/26/16 01:15 Ephedrine Sulfate IVP 09/26/16 01:25 10 mg ONCE STA Administration Ceftriaxone Sodium 1 gm/ 50 mls @ 75 mls/hr 09/26/16 01:02 09/26/16 00:05 Sodium Chloride IV 09/26/16 01:41 75 mls/hr ONCE STA Administration Dopamine HCl/Dextrose 400 mg/ 250 mls @ 9.27 mls/hr 09/26/16 02:00 09/26/16 02:43 Dextrose IV 7 mcg/kg/min .Q24H CAROL 12.97 mls/hr Protocol Titration 5 MCG/KG/MIN Levalbuterol HCl 1 vial 09/26/16 01:52 09/25/16 22:35 Xopenex 1.25 Mg NEB 09/26/16 01:53 1 vial ONCE STA Administration Lidocaine HCl 10 ml 09/26/16 02:16 Uro-Jet MUCOUSMEMB 09/26/16 02:17 ONCE STA Methylprednisolone Sodium Succinate 125 mg 09/26/16 00:58 09/25/16 22:45 Solu-Medrol 125 Mg IVP 09/26/16 00:59 125 mg ONCE STA Administration Midazolam HCl 2.5 mg 09/26/16 01:10 09/26/16 01:01 Versed IVP 09/26/16 01:11 2.5 mg ONCE STA Administration Phenylephrine HCl 0.1 mg 09/26/16 01:27 09/26/16 01:20 Phenylephrine IVP 09/26/16 01:28 0.1 mg ONCE STA Administration Propofol 20 mg 09/26/16 01:10 09/26/16 01:32 Diprivan 20 Ml Vial IVP 09/26/16 01:11 20 mg ONCE STA Administration Sodium Chloride 1 syr 09/26/16 01:43 Saline Flush IVF PRN PRN To flush IV Succinylcholine Chloride 80 mg 09/26/16 01:09 09/26/16 01:02 Anectine IVP 09/26/16 01:10 80 mg ONCE STA Administration Vecuronium Jackson 4 mg 09/26/16 01:40 09/26/16 01:24 Norcuron IVP 09/26/16 01:41 4 mg ONCE STA Administration Vital Signs: Temp Pulse Resp BP Pulse Ox 09/26/16 02:43 123 H 18 82/67 L 09/26/16 01:56 108 H 18 87/65 L 09/26/16 01:48 18 09/25/16 21:50 98.4 F 102 H 26 H 165/86 H 90 L Departure - Departure Time of Disposition: 01:00 Disposition: TSF SHORT-TRM HOSP Discharge Problem: Acute respiratory failure Qualifiers: Respiratory failure complication: hypoxia Qualifier Code: (J96.01) Acute respiratory failure with hypoxia Instructions: COPD (Chronic Obstructive Pulmonary Disease) (DC) Condition: Serious Pt referred to PMD for follow-up: No Allergies/Adverse Reactions: Allergies No Known Allergies Allergy (Verified 09/26/16 01:01) Home Medications: Ambulatory Orders Tiotropium Jackson [Spiriva] 18 mcg IH d 11/14/15 Albuterol Sulfate 2.5 mg IH 3-4XD PRN 03/06/16 Albuterol Sulfate [Ventolin Hfa] 8 gm IH 3-4XD PRN 03/20/16 Budesonide/Formoterol Fumarate [Symbicort 160-4.5 Mcg Inhaler] 10.2 gm IH BID Pt. Stabilized Within Hospital's Capabilities/Transferred To: [facility] Transfer Form Completed: Yes
== END 2016-09-26 02:50 | disposition short-term general hospital (02) ==
LOC: ED 21:50
DX: J96.01 Acute respiratory failure with hypoxia (principal); F17.210 Nicotine dependence, cigarettes, uncomplicated; J44.9 Chronic obstructive pulmonary disease, unspecified; Z79.899 Other long term (current) drug therapy
CPT/HCPCS: 36415; 80053; 81001; 82550; 82553; 82803; 83880; 84484; 85025; 85379; 93005; 93010; 94640; 96361; 96365; 96367; 96375; 99285

== ENCOUNTER 2016-09-26 03:04 | Outpatient (CLI) ==
[2016-09-26 00:42] VITALS: BMI 19.9
== END 2016-09-26 03:05 | disposition home or self-care (01) ==
LOC: AMBL 03:04
PROVIDERS: ATTEND Family Medicine
DX: R06.02 Shortness of breath (principal); R40.20 Unspecified coma

== ENCOUNTER 2017-03-01 15:21 | Outpatient (CLI) | END 2017-03-01 15:22 | disposition short-term general hospital (02) | LOC: AMBL 15:21 | PROVIDERS: ATTEND Internal Medicine Geriatric Medicine | DX: R06.02 Shortness of breath (principal); R00.0 Tachycardia, unspecified ==